=== PATIENT | male | born 1995 | race American Indian/Alaskan Native ===

== ENCOUNTER 2019-08-01 11:08 | Emergency (ER) | payer MEDICAID ==
[2019-08-01 11:35] VITALS: BP 104/73
--- NOTE | 2019-08-01 11:36 | Emergency Department Report ---
ED Psych HPI - General Chief Complaint: Psych Stated Complaint: SUICIDAL IDEATIONS Time Seen by Provider: 08/01/19 11:32 Source: patient, EMS Mode of arrival: Ambulatory - History of Present Illness Initial Comments: Patient is 23 years old male with history of schizophrenia. Patient presented to the ER stating that his very depressed and he is suicidal. Patient stated that he tried to run into traffic yesterday and the day before. Patient stated that he got scared. Patient also stated that he feels like people are trying to get him. Patient denied any auditory or visual hallucination. No homicidal ideation. MD Complaint: suicidal ideation, feels depressed -: days(s) (5) Associated Psychiatric Symptoms: depression, suicidal ideation, delusions History of same: Yes Quality: constant Associated Symptoms: denies other symptoms Treatments Prior to Arrival: none If Self Harm: admits thoughts of, has plan, self-inflicted trauma - Related Data Home Medications Medication Instructions Recorded Confirmed Last Taken ARIPiprazole [Abilify] 30 mg PO BID 08/01/19 08/01/19 08/01/19 Allergies Allergy/AdvReac Type Severity Reaction Status Date / Time No Known Allergies Allergy Unverified 08/01/19 11:33 ED Review of Systems ROS: Stated complaint: SUICIDAL IDEATIONS Other details as noted in HPI Comment: All other systems reviewed and negative Constitutional: denies: chills, fever Respiratory: denies: cough, shortness of breath, SOB with exertion, wheezing Cardiovascular: denies: chest pain, palpitations Gastrointestinal: denies: abdominal pain, nausea, vomiting Musculoskeletal: denies: back pain ED Past Medical Hx - Past Medical History Previous Medical History?: Yes Hx Psychiatric Treatment: Yes (Schizophrenia) - Surgical History Past Surgical History?: No - Social History Smoking Status: Current Every Day Smoker - Medications Home Medications: Home Medications Medication Instructions Recorded Confirmed Last Taken Type ARIPiprazole [Abilify] 30 mg PO BID 08/01/19 08/01/19 08/01/19 History ED Physical Exam - General Limitations: No Limitations General appearance: alert, in no apparent distress - Head Head exam: Present: atraumatic, normocephalic, normal inspection - Eye Eye exam: Present: normal appearance - ENT ENT exam: Present: normal exam, normal orophraynx, mucous membranes moist - Neck Neck exam: Present: normal inspection, full ROM. Absent: tenderness, meningismus, lymphadenopathy, thyromegaly - Respiratory Respiratory exam: Present: normal lung sounds bilaterally - Cardiovascular Cardiovascular Exam: Present: regular rate, normal rhythm, normal heart sounds - GI/Abdominal GI/Abdominal exam: Present: soft, normal bowel sounds. Absent: distended, tenderness, guarding, rebound, rigid, organomegaly, mass, bruit, pulsatile mass, hernia - Extremities Exam Extremities exam: Present: normal inspection, full ROM, normal capillary refill. Absent: tenderness, pedal edema, calf tenderness - Back Exam Back exam: Present: normal inspection, full ROM. Absent: CVA tenderness (R), CVA tenderness (L), muscle spasm, paraspinal tenderness, vertebral tenderness - Neurological Exam Neurological exam: Present: alert, oriented X3, CN II-XII intact, normal gait, reflexes normal - Psychiatric Psychiatric exam: Present: depressed, suicidal ideation. Absent: agitated, anxious, flat affect, manic, homicidal ideation - Skin Skin exam: Present: warm, intact, normal color ED Course Vital Signs 08/01/19 11:34 Temperature 98.2 F Pulse Rate 66 Respiratory 16 Rate Blood Pressure 104/73 [Right] O2 Sat by Pulse 97 Oximetry ED Medical Decision Making - Lab Data Result diagrams: 08/01/19 11:38 08/01/19 11:38 Critical care attestation.: If time is entered above; I have spent that time in minutes in the direct care of this critically ill patient, excluding procedure time. ED Disposition Clinical Impression: Suicidal behavior Disposition: DC/TX-65 PSY HOSP/PSY UNIT Is pt being admited?: No Condition: Stable Referrals: PRIMARY CARE [Primary Care Provider] - 3-5 Days
[2019-08-01 12:05] LABS: Basophils % (Auto) 0.6 % (0.0-1.8); Eosinophils # (Auto) 0.1 K/mm3 (0.0-0.4); Eosinophils % (Auto) 2.2 % (0.0-4.3); Hematocrit 43.3 % (35.5-45.6); Hemoglobin 14.5 gm/dl (11.8-15.2); Lymphocytes % (Auto) 32.5 % (13.4-35.0); Mean Corpuscular HGB Conc 33 % (32-34); Mean Corpuscular Volume 88 fl (84-94); Monocytes # (Auto) 0.4 K/mm3 (0.0-0.8); Monocytes % (Auto) 7.2 % (0.0-7.3); Red Blood Count 4.92 M/mm3 (3.65-5.03); Red Cell Distribution Width 13.5 % (13.2-15.2)
[2019-08-01 12:07] LABS: Platelet Count 148 K/mm3 (140-440)
[2019-08-01 12:09] LABS: BUN/Creatinine Ratio 10; Blood Urea Nitrogen 8 mg/dL (9-20); Calcium 9.2 mg/dL (8.4-10.2); Hemolysis Index 3
[2019-08-01 12:27] LABS: Bilirubin,Urine NEG (Negative); Blood,Urine SM (Negative); Color,Urine Yellow (Yellow); Mucus,Urine FEW /HPF; Protein,Urine <15 mg/dL mg/dL (Negative); Urobilinogen,Urine < 2.0 mg/dL (<2.0); WBC,Urine < 1.0 /HPF (0.0-6.0)
[2019-08-01 12:33] LABS: Amphetamine Screen,Urine PRESUMPTIVE NEGATIVE; Benzodiazepines Screen,Urine PRESUMPTIVE NEGATIVE; Cannabinoid Screen,Urine PRESUMPTIVE NEGATIVE; Cocaine Screen,Urine PRESUMPTIVE NEGATIVE; Methadone Screen,Urine PRESUMPTIVE NEGATIVE; Opiate Screen,Urine PRESUMPTIVE NEGATIVE
== END 2019-08-01 17:00 ==
LOC: ED 11:08
DX: F32.9 Major depressive disorder, single episode, unspecified (principal); R45.851 Suicidal ideations; F17.200 Nicotine dependence, unspecified, uncomplicated; F20.9 Schizophrenia, unspecified
CPT/HCPCS: 36415; 80048; 80307; 80320; 81001; 85025; G0480

== ENCOUNTER 2021-01-08 19:37 | Emergency (ER) | payer MEDICARE ==
--- NOTE | 2021-01-08 20:54 | Emergency Department Report ---
ED Psych HPI - General Chief Complaint: Psych Stated Complaint: SUICIDAL THOUGHTS/MH EVAL Time Seen by Provider: 01/08/21 20:25 Source: patient Mode of arrival: Ambulatory - History of Present Illness Initial Comments: Patient is a 25-year-old F Bur[place]ian male who has a past medical history of schizophrenia is noncompliant with his medications who is presenting with several weeks for suicidal ideations. Patient also states he is depressed and is hearing voices as well. Denies drug or alcohol abuse. Patient denies cough cold congestion fevers or chills. - Related Data Home Medications Medication Instructions Recorded Confirmed Last Taken ARIPiprazole [Abilify] 30 mg PO BID 08/01/19 12/13/19 1 Day Ago ~12/12/19 30 Previous Rx's Medication Instructions Recorded Last Taken Type ARIPiprazole [Abilify] 10 mg PO DAILY #30 tab 07/08/19 2 Days Ago Rx ~12/11/19 10 Citalopram [celeXA] 10 mg PO QDAY #30 tablet 07/08/19 Unknown Rx ARIPiprazole [Abilify] 10 mg PO DAILY 30 Days #30 tab 01/11/21 Unknown Rx Ciprofloxacin HCl 500 mg PO BID 10 Days #20 tablet 01/11/21 Unknown Rx Citalopram [celeXA] 20 mg PO QDAY 30 Days #30 tablet 01/11/21 Unknown Rx Allergies Allergy/AdvReac Type Severity Reaction Status Date / Time No Known Allergies Allergy Unverified 11/04/19 11:24 ED Review of Systems ROS: Stated complaint: SUICIDAL THOUGHTS/MH EVAL Other details as noted in HPI Comment: All other systems reviewed and negative ED Past Medical Hx - Past Medical History Previous Medical History?: Yes Hx Psychiatric Treatment: Yes (schizophrenia) Hx Asthma: Yes - Surgical History Past Surgical History?: Yes Additional Surgical History: Hernia repair. ingrown toes - Social History Smoking Status: Current Every Day Smoker Substance Use Type: None - Medications Home Medications: Home Medications Medication Instructions Recorded Confirmed Last Taken Type ARIPiprazole [Abilify] 10 mg PO DAILY #30 tab 07/08/19 12/13/19 2 Days Ago Rx ~12/11/19 10 Citalopram [celeXA] 10 mg PO QDAY #30 tablet 07/08/19 12/13/19 Unknown Rx ARIPiprazole [Abilify] 30 mg PO BID 08/01/19 12/13/19 1 Day Ago History ~12/12/19 30 ARIPiprazole [Abilify] 10 mg PO DAILY 30 Days #30 tab 01/11/21 Unknown Rx Ciprofloxacin HCl 500 mg PO BID 10 Days #20 tablet 01/11/21 Unknown Rx Citalopram [celeXA] 20 mg PO QDAY 30 Days #30 tablet 01/11/21 Unknown Rx ED Physical Exam - General Limitations: No Limitations General appearance: alert, in no apparent distress - Head Head exam: Present: atraumatic, normocephalic - Eye Eye exam: Present: normal appearance - ENT ENT exam: Present: mucous membranes moist - Neck Neck exam: Present: normal inspection - Respiratory Respiratory exam: Present: normal lung sounds bilaterally. Absent: respiratory distress, wheezes, rales, rhonchi - Cardiovascular Cardiovascular Exam: Present: regular rate, normal rhythm. Absent: systolic murmur, diastolic murmur, rubs, gallop - GI/Abdominal GI/Abdominal exam: Present: soft, normal bowel sounds. Absent: distended, tenderness, guarding - Rectal Rectal exam: Present: deferred - Extremities Exam Extremities exam: Present: normal inspection - Back Exam Back exam: Present: normal inspection - Neurological Exam Neurological exam: Present: alert, oriented X3 - Psychiatric Psychiatric exam: Present: normal affect, normal mood - Skin Skin exam: Present: warm, dry, intact, normal color. Absent: rash ED Course Vital Signs 01/08/21 01/09/21 01/09/21 20:12 08:30 10:19 Temperature 98.7 F 97.9 F Pulse Rate 98 H 76 Respiratory 18 18 Rate Blood Pressure 106/72 154/70 [Right] O2 Sat by Pulse 96 97 97 Oximetry 01/09/21 01/10/21 01/10/21 20:04 09:27 10:03 Temperature 97.8 F 98 F Pulse Rate 79 74 Respiratory 18 18 Rate Blood Pressure 115/79 119/85 [Right] O2 Sat by Pulse 97 99 99 Oximetry 01/10/21 10:44 Temperature Pulse Rate Respiratory Rate Blood Pressure [Right] O2 Sat by Pulse 99 Oximetry - Reevaluation(s) Reevaluation #1: 01/08/21 22:59 EMANUELSCOTT Male : 1995 MedRec# [id number] 01/08/21 22:24 - MH Chuck Tender's Note by CAITLYN BALLESTEROS Acct Num: [id number] : 1995 Patient Age: 25 MENTAL HEALTH ASSESSMENT COMPLETED: Pt is a 25 year old AA male; Per triage note, "SI, no plan; "off and on for 2 wks" Pt receives disability as primary income. Pt carries a diagnosis of Sc hizophrenia. Pt has hx of inpatient admissions at [facility] and [place]; pt has not been compliant with [facility] meds. Pt has no outpatient mental health providers; "I just get my medicines from the [facility] because they give me prescriptions." Pt reported to ED provider that he has been off his meds for a couple of weeks; however, Pt reports to this fish protector that he was discharged from [facility] yesterday where he was given his medication while under their care; "I was there about 3 or 4 days." Pt was prescribed Risperdal per pt. I was living at [facility], "but they aren't taking me because I can't pay the rent." Pt reports he was evicted this morning; therefore, pt is currently homeless. "The rent is $800 now; it was more this time." Pt reports that he would like a new place to stay; previously was living in [facility] and [place]. Pt's mother is ; some of the pt's family is in [place], "but they don't want me staying with them." Pt denies any suicidal thoughts or plans to this fish protector. however, according to triage pt came in for SI; pt denies SI to this fish protector and reports he needs help from "director social". Pt reports, "I need help to find somewhere to go because ya'll helped me at [facility] find somewhere before." Pt reports that he needs assistance with housing; pt reports that he prefers, "gr oup homes in a different city besides [place] and [place]." "And [facility] sent me [place] [facility] [place], but they kicked me out when I didn't pay." Pt stated, "will ya'll keep me here for a couple of days and then find me somewhere to go?" Pt reports no thoughts or plans to harm others. Pt is oriented x 4. Pt is able to advocate for himself (pt requests housing as he was evicted this morning due to being unable to pay the rent.). Pt denied any AH or VH to this fish protector; pt is focused on wanting assistance with finding housing/a new [place]. Pt has good eye contact. Pt does appear to have slow speech and delayed answers when responding; possible developmental delays as pt reports Schizophrenia and "something else." Pt explained that he has a payee who is responsible for "finding me the housing and who gets my money." Pt has delay in his attention. RECOMMENDATION: Pt does NOT meet criteria for inpatient/1013. Pt needs assistance with housing/director social. Discussed with Dr. Bren Vang who will place case management consult to locate pt's payee/guardian ( Ms. Vela [phone])and assistance with safe discharge/housing. Caitlyn Laird LPC Initialized on 01/08/21 22:24 - END OF NOTE Reevaluation #2: 01/08/21 22:59 Patient given different stories regarding whether he is suicidal. Appears that the patient is here because of some type of [place] issue. Patient appears to possibly have some developmental delay and did not feel it was safe to let the patient leave during the nighttime with limited resources. Will have social work see the patient in the morning. Patient does have a payee she did have his living situation taken care of. Reevaluation #3: 01/22/21 13:03 Patricia Psych Progress Note Patient Name: SCOTT CASTELLANOS Date of : [birth year] Patient Status: Emergency Emergency Provider: ANDRZEJ VANG Date: 01/10/21 10:24 Initialization Date: 01/10/21 10:24 Subjective Date of service: 01/10/21 Subjective Comment: The patient was seen this morning, he reports doing well. The patient denies any current suicidal/homicidal ideation and denies hallucinations. REVIEW OF SYSTEMS Constitutional: Negative for weight loss ENT: Negative for stridor Respiratory: Negative for cough or hemoptysis All other systems reviewed and are negative MENTAL STATUS EXAMINATION General Appearance and Behavior: Age appropriate, good hygiene, wearing appropriate clothes, cooperative, cooperative Cooperation: Participating/engaged Psychomotor Behavior: normal Mood: Ok Affect and affective range: congruent with stated mood Thought Process: Not suicidal Thought Content:Goal directed Speech: Normal volume, Regular rate and rhythm Suicidal Ideation: Denies Homicidal Ideation: Denies Hallucinations: Denies Delusions: None elicited Impulse Control: good Insight and Judgment: Limited insight and judgment, Memory: normal Attention: Normal Orientation: Alert, oriented Assessment and Plan (1) Schizophrenia-F20.9 Current Visit: Yes Status: Acute Treatment Plan Sitter: Per primary Medical: Per primary Disposition:Do not recommend acute psychiatric inpatient treatment. The patient understands that is suicidal/homicidal ideation or any endangering thoughts/ behaviors arise, they should immediately seek for emergent assistance including but not limited to crisis hotline and emergency room. The patient will follow up with psychiatric outpatient referral provided by mental health fish protector. Will sign off. Thanks Case staffed with Dr. Gandhi Reevaluation #4: 01/22/21 13:03 SCOTT CASTELLANOS Male : 1995 MedRec# [id number] 01/10/21 14:31 - Mash Processing Operator Note by PERI SIERRA Acct Num: [id number] : 1995 Patient Age: 25 DIRECTOR CHEMISTRY met with patient in the ED. Psych has signed off. (Pt stable) Patient stated that he was in [place] but was told to leave due to nonpayment, DIRECTOR CHEMISTRY called left voice message. Patient reports to having a Payee, gave number, . Payee Fariba Evaristo returned call stating that pt lives with her at [address] [place] [address], but he tends to wander off to different places in [place]? Payee gave DIRECTOR CHEMISTRY pt sisters number Daya Segura [phone] who has POA. Sister also confirms that pt wanders off saying "Why does he keep doing this"? Pt has Medicaid DIRECTOR CHEMISTRY called [employer] for a ride, but its inactivate. Sister stated that she wanted to speak with her brother, gave her nurse Yazmin's number to call to ED. Sister will speak with pt regarding his discharge plan. Initialized on 01/10/21 14:31 - END OF NOTE ED Medical Decision Making - Lab Data Result diagrams: 01/08/21 21:04 01/08/21 21:04 Critical care attestation.: If time is entered above; I have spent that time in minutes in the direct care of this critically ill patient, excluding procedure time. ED Disposition Clinical Impression: Schizophrenia Disposition: 01 HOME / SELF CARE / HOMELESS Is pt being admited?: No Does the pt Need Aspirin: No Condition: Stable Instructions: Schizophrenia Additional Instructions: OUTPATIENT MENTAL HEALTH RESOURCES [facility], [facility] Aliya Kenny MD: [address] [place] [address] [place] [address] [facility]: [employer] [address] [place] [address] [place] [address] [phone] [facility]: [facility]: [address] [place] [address] [facility] [id number] [facility]: Andrew Onofre MD: [address] [facility] [id number] [facility]: [address] [place], [place] [id number] [phone] CRISIS AND ACCESS LINE: Referrals: PIPPA BARRY MD [Primary Care Provider] - 3-5 Days
[2021-01-08 21:46] LABS: Basophils # (Auto) 0.1 K/mm3 (0.0-0.1); Basophils % (Auto) 0.5 % (0.0-1.8); Eosinophils # (Auto) 0.2 K/mm3 (0.0-0.4); Eosinophils % (Auto) 1.8 % (0.0-4.3); Hematocrit 41.8 % (35.5-45.6); Hemoglobin 14.3 gm/dl (11.8-15.2); Lymphocytes # (Auto) 3.2 K/mm3 (1.2-5.4); Lymphocytes % (Auto) 30.1 % (13.4-35.0); Mean Corpuscular HGB Conc 34 % (32-34); Mean Corpuscular Volume 87 fl (84-94); Monocytes # (Auto) 0.9 K/mm3 (0.0-0.8); Monocytes % (Auto) 8.9 % (0.0-7.3); Platelet Count 193 K/mm3 (140-440); Red Blood Count 4.81 M/mm3 (3.65-5.03); Red Cell Distribution Width 13.5 % (13.2-15.2)
[2021-01-08 21:57] LABS: BUN/Creatinine Ratio 14; Blood Urea Nitrogen 14 mg/dL (9-20); Calcium 9.4 mg/dL (8.4-10.2); Hemolysis Index 27
[2021-01-08 22:57] LABS: Amphetamine Screen,Urine PRESUMPTIVE NEGATIVE; Benzodiazepines Screen,Urine PRESUMPTIVE NEGATIVE; Cannabinoid Screen,Urine PRESUMPTIVE NEGATIVE; Cocaine Screen,Urine PRESUMPTIVE NEGATIVE; Methadone Screen,Urine PRESUMPTIVE NEGATIVE; Opiate Screen,Urine PRESUMPTIVE NEGATIVE
[2021-01-08 22:59] LABS: Bilirubin,Urine NEG (Negative); Blood,Urine MOD (Negative); Color,Urine Yellow (Yellow); Mucus,Urine FEW /HPF; Protein,Urine <15 mg/dL mg/dL (Negative); Urobilinogen,Urine < 2.0 mg/dL (<2.0)
[2021-01-09] MEDS ORDERED: levoFLOXacin 500 MG TAB PO ONE (10:37)
--- NOTE | 2021-01-09 11:15 | Event Note ---
Date: 01/09/21 S: No events reported overnight O: Vital Signs - 24 hr 01/08/21 01/09/21 01/09/21 20:12 08:30 10:19 Temperature 98.7 F 97.9 F Pulse Rate 98 H 76 Respiratory 18 18 Rate Blood Pressure 106/72 154/70 [Right] O2 Sat by Pulse 96 97 97 Oximetry A: History of suicidal ideation cleared by psych. UTI P: Patient cleared by psych currently awaiting case management consult for locating patient's payee/guardian for safe discharge Continue Levaquin 500 mg daily x7 days for UTI
--- NOTE | 2021-01-09 11:28 | Consultation ---
History of Present Illness - Reason for Consult Consult date: 01/09/21 Reason for consult: mental health evaluation - History of Present Psychiatric Illness Shyam Gonzalez is a 25 year old patient with a history of Schizophrenia and multiple psychiatric admissions. In my interview with the patient,the patient reports that he was recently releases from [facility] for SI. He reports that he was feeling depression with suicidal ideation yesterday but denies diana icidal/homicidal and denies hallucinations today. He reports that he has tried Risperidone, and Abilify however, medication compliance is unknown.The patient states that he lives at "[facility] but I can't afford the rent." Diagnoses: schizophrenia Suicide attempts or Self-harm behavior:Denies Prior psychiatric hospitalizations: Yes Substance Abuse history: Denies Previous psychiatric medications tried: Abilify, Risperidone Outpatient treatment: Denies PAST MEDICAL HISTORY: None reported Family Psychiatric History: None reported or documented SOCIAL HISTORY Marital Status: single Living Arrangements: with room mate Employment Status: unemployed Access to guns/weapons: Denies Education: 11th grade History of Abuse: none reported Legal History: none reported REVIEW OF SYSTEMS Constitutional: Negative for weight loss ENT: Negative for stridor Respiratory: Negative for cough or hemoptysis All other systems reviewed and are negative MENTAL STATUS EXAMINATION General Appearance and Behavior: Age appropriate, good hygiene, wearing appropriate clothes, cooperative, cooperative Cooperation: Participating/engaged Psychomotor Behavior: normal Mood: OK Affect and affective range: congruent with stated mood Thought Process: logical Thought Content: Not SI Speech: Normal volume, Regular rate and rhythm Suicidal Ideation: Denies Homicidal Ideation: Denies Hallucinations: Denies Delusions: None elicited Impulse Control: impaired Insight and Judgment: limited insight and judgment, Memory: normal Attention: Normal Orientation: Alert, oriented Assessment and Plan (1) Schizophrenia Current Visit: Yes Status: Acute Treatment Plan Sitter: Per primary Medical: Per primary Disposition: Do not recommend acute psychiatric inpatient treatment Will follow. Thanks Case staffed with Dr. Gandhi Medications and Allergies Allergies Allergy/AdvReac Type Severity Reaction Status Date / Time No Known Allergies Allergy Unverified 11/04/19 11:24 Home Medications Medication Instructions Recorded Confirmed Last Taken Type ARIPiprazole [Abilify] 10 mg PO DAILY #30 tab 07/08/19 12/13/19 2 Days Ago Rx ~12/11/19 10 Citalopram [celeXA] 10 mg PO QDAY #30 tablet 07/08/19 12/13/19 Unknown Rx ARIPiprazole [Abilify] 30 mg PO BID 08/01/19 12/13/19 1 Day Ago History ~12/12/19 30 Mental Status Exam - Vital signs Last Vital Signs Temp 97.9 F 01/09/21 08:30 Pulse 76 01/09/21 08:30 Resp 18 01/09/21 08:30 BP 154/70 01/09/21 08:30 Pulse Ox 97 01/09/21 10:19 Results Result Diagrams: 01/08/21 21:04 01/08/21 21:04 Abnormal lab results 01/08/21 01/08/21 01/08/21 Range/Units 21:04 21:04 21:04 [place] % (Auto) 8.9 H (0.0-7.3) % [place] # (Auto) 0.9 H (0.0-0.8) K/mm3 Urine WBC (Auto) (0.0-6.0) /HPF Salicylates < 0.3 L (2.8-20.0) mg/dL Acetaminophen 5.0 L (10.0-30.0) ug/mL 01/08/21 Range/Units Unknown [place] % (Auto) (0.0-7.3) % [place] # (Auto) (0.0-0.8) K/mm3 Urine WBC (Auto) 62.0 H (0.0-6.0) /HPF Salicylates (2.8-20.0) mg/dL Acetaminophen (10.0-30.0) ug/mL All other labs normal.
[2021-01-10 10:04] VITALS: BP 119/85
--- NOTE | 2021-01-10 10:24 | Progress Note ---
Subjective Date of service: 01/10/21 Subjective Comment: The patient was seen this morning, he reports doing well. The patient denies any current suicidal/homicidal ideation and denies hallucinations. REVIEW OF SYSTEMS Constitutional: Negative for weight loss ENT: Negative for stridor Respiratory: Negative for cough or hemoptysis All other systems reviewed and are negative MENTAL STATUS EXAMINATION General Appearance and Behavior: Age appropriate, good hygiene, wearing appropriate clothes, cooperative, cooperative Cooperation: Participating/engaged Psychomotor Behavior: normal Mood: Ok Affect and affective range: congruent with stated mood Thought Process: Not suicidal Thought Content:Goal directed Speech: Normal volume, Regular rate and rhythm Suicidal Ideation: Denies Homicidal Ideation: Denies Hallucinations: Denies Delusions: None elicited Impulse Control: good Insight and Judgment: Limited insight and judgment, Memory: normal Attention: Normal Orientation: Alert, oriented Assessment and Plan (1) Schizophrenia-F20.9 Current Visit: Yes Status: Acute Treatment Plan Sitter: Per primary Medical: Per primary Disposition:Do not recommend acute psychiatric inpatient treatment. The patient understands that is suicidal/homicidal ideation or any endangering thoughts/ behaviors arise, they should immediately seek for emergent assistance including but not limited to crisis hotline and emergency room. The patient will follow up with psychiatric outpatient referral provided by mental health dubbing machine operator. Will sign off. Thanks Case staffed with Dr. Gandhi Medications and Allergies Allergies Allergy/AdvReac Type Severity Reaction Status Date / Time No Known Allergies Allergy Unverified 11/04/19 11:24 Home Medications Medication Instructions Recorded Confirmed Last Taken Type ARIPiprazole [Abilify] 10 mg PO DAILY #30 tab 07/08/19 12/13/19 2 Days Ago Rx ~12/11/19 10 Citalopram [celeXA] 10 mg PO QDAY #30 tablet 07/08/19 12/13/19 Unknown Rx ARIPiprazole [Abilify] 30 mg PO BID 08/01/19 12/13/19 1 Day Ago History ~12/12/19 30 Results - Results Labs/Vitals: Laboratory Last Values WBC 10.6 K/mm3 (4.5-11.0) 01/08/21 21:04 RBC 4.81 M/mm3 (3.65-5.03) 01/08/21 21:04 Hgb 14.3 gm/dl (11.8-15.2) 08/06/21 21:04 Hct 41.8 % (35.5-45.6) 01/08/21 21:04 MCV 87 fl (84-94) 01/08/21 21:04 MCH 30 pg (28-32) 01/08/21 21:04 MCHC 34 % (32-34) 01/08/21 21:04 RDW 13.5 % (13.2-15.2) 01/08/21 21:04 Plt Count 193 K/mm3 (140-440) 01/08/21 21:04 Lymph % (Auto) 30.1 % (13.4-35.0) 01/08/21 21:04 Rush % (Auto) 8.9 % (0.0-7.3) H 01/08/21 21:04 Eos % (Auto) 1.8 % (0.0-4.3) 01/08/21 21:04 Baso % (Auto) 0.5 % (0.0-1.8) 01/08/21 21:04 Lymph # (Auto) 3.2 K/mm3 (1.2-5.4) 01/08/21 21:04 Rush # (Auto) 0.9 K/mm3 (0.0-0.8) H 01/08/21 21:04 Eos # (Auto) 0.2 K/mm3 (0.0-0.4) 01/08/21 21:04 Baso # (Auto) 0.1 K/mm3 (0.0-0.1) 01/08/21 21:04 Seg Neutrophils % 58.7 % (40.0-70.0) 01/08/21 21:04 Seg Neutrophils # 6.2 K/mm3 (1.8-7.7) 01/08/21 21:04 Sodium 141 mmol/L (137-145) 01/08/21 21:04 Potassium 3.9 mmol/L (3.6-5.0) 01/08/21 21:04 Chloride 104.8 mmol/L (98-107) 01/08/21 21:04 Carbon Dioxide 22 mmol/L (22-30) 01/08/21 21:04 Anion Gap 18 mmol/L 01/08/21 21:04 BUN 14 mg/dL (9-20) 01/08/21 21:04 Creatinine 1.0 mg/dL (0.8-1.3) 01/08/21 21:04 Estimated GFR > 60 ml/min 01/08/21 21:04 BUN/Creatinine Ratio 14 % 01/08/21 21:04 Glucose 94 mg/dL (75-100) 01/08/21 21:04 Calcium 9.4 mg/dL (8.4-10.2) 01/08/21 21:04 Urine Color Yellow (Yellow) 01/08/21 Unknown Urine Turbidity Slightly-cloudy (Clear) 01/08/21 Unknown Urine pH 5.0 (5.0-7.0) 01/08/21 Unknown Ur Specific [place] 1.015 (1.003-1.030) 01/08/21 Unknown Urine Protein <15 mg/dl mg/dL (Negative) 01/08/21 Unknown Urine Glucose (UA) Neg mg/dL (Negative) 01/08/21 Unknown Urine Ketones Neg mg/dL (Negative) 01/08/21 Unknown Urine Blood Mod (Negative) 01/08/21 Unknown Urine Nitrite Neg (Negative) 01/08/21 Unknown Urine Bilirubin Neg (Negative) 01/08/21 Unknown Urine Urobilinogen < 2.0 mg/dL (<2.0) 01/08/21 Unknown Ur Leukocyte Esterase Lg (Negative) 01/08/21 Unknown Urine WBC (Auto) 62.0 /HPF (0.0-6.0) H 01/08/21 Unknown Urine RBC (Auto) 5.0 /HPF (0.0-6.0) 01/08/21 Unknown U Epithel Cells (Auto) 5.0 /HPF (0-13.0) 01/08/21 Unknown Urine Mucus Few /HPF 01/08/21 Unknown Salicylates < 0.3 mg/dL (2.8-20.0) L 01/08/21 21:04 Urine Opiates Screen Presumptive negative 01/08/21 Unknown Urine Methadone Screen Presumptive negative 01/08/21 Unknown Acetaminophen 5.0 ug/mL (10.0-30.0) L 01/08/21 21:04 Ur Barbiturates Screen Presumptive negative 01/08/21 Unknown Ur Phencyclidine Scrn Presumptive negative 01/08/21 Unknown Ur Amphetamines Screen Presumptive negative 01/08/21 Unknown U Benzodiazepines Scrn Presumptive negative 01/08/21 Unknown Urine Cocaine Screen Presumptive negative 01/08/21 Unknown U Marijuana (THC) Screen Presumptive negative 01/08/21 Unknown Drugs of Abuse Note Disclamer 01/08/21 Unknown Plasma/Serum Alcohol < 0.01 % (0-0.07) 01/08/21 21:04 Last Vital Signs Temp 98 F 01/10/21 10:03 Pulse 74 01/10/21 10:03 Resp 18 01/10/21 10:03 BP 119/85 01/10/21 10:03 Pulse Ox 99 01/10/21 10:03
--- NOTE | 2021-01-10 10:54 | Event Note ---
Date: 01/10/21 S: No events reported overnight O: Vital Signs - 24 hr 01/09/21 01/10/21 01/10/21 20:04 09:27 10:03 Temperature 97.8 F 98 F Pulse Rate 79 74 Respiratory 18 18 Rate Blood Pressure 115/79 119/85 [Right] O2 Sat by Pulse 97 99 99 Oximetry 01/10/21 10:44 Temperature Pulse Rate Respiratory Rate Blood Pressure [Right] O2 Sat by Pulse 99 Oximetry A: Schizophrenia, homelessness P: Psychiatry has signed off. Currently awaiting case management for safe discharge home
== END 2021-01-10 15:10 | disposition home or self-care (01) ==
LOC: EEVIPCON 19:37 → ED 19:37
DX: R45.851 Suicidal ideations (principal); F20.9 Schizophrenia, unspecified; J45.909 Unspecified asthma, uncomplicated; F17.200 Nicotine dependence, unspecified, uncomplicated
CPT/HCPCS: 36415; 80048; 80307; 80320; 81001; 85025; 87086; 99284; G0480

== ENCOUNTER 2021-01-11 02:02 | Emergency (ER) | payer MEDICARE ==
[2021-01-11 03:20] LABS: Basophils % (Auto) 0.4 % (0.0-1.8); Eosinophils # (Auto) 0.2 K/mm3 (0.0-0.4); Hematocrit 40.3 % (35.5-45.6); Hemoglobin 13.7 gm/dl (11.8-15.2); Lymphocytes # (Auto) 2.8 K/mm3 (1.2-5.4); Lymphocytes % (Auto) 26.8 % (13.4-35.0); Mean Corpuscular HGB Conc 34 % (32-34); Mean Corpuscular Volume 87 fl (84-94); Monocytes # (Auto) 0.9 K/mm3 (0.0-0.8); Monocytes % (Auto) 8.5 % (0.0-7.3); Platelet Count 190 K/mm3 (140-440); Red Blood Count 4.62 M/mm3 (3.65-5.03); Red Cell Distribution Width 13.9 % (13.2-15.2)
[2021-01-11 03:38] LABS: BUN/Creatinine Ratio 14; Blood Urea Nitrogen 11 mg/dL (9-20); Calcium 9.9 mg/dL (8.4-10.2); Hemolysis Index 5
--- NOTE | 2021-01-11 06:41 | Emergency Department Report ---
ED Psych HPI - General Chief Complaint: Psych Stated Complaint: DEPRESSED Time Seen by Provider: 01/11/21 06:17 Source: patient Mode of arrival: Ambulatory - History of Present Illness Initial Comments: Patient is 25 years old male with history of depression, schizophrenia and mu ltiple psychiatric admission. Patient presented to the ER stated that he is feeling depressed however patient denied any suicidal homicidal ideation. Patient also denied any auditory or visual hallucination. Patient was seen here 2 days ago and has been evaluated by our psychiatric team and discharged to follow-up as an outpatient. Patient today stated that he just want to see if he can get some medication for depression and then he would leave. Patient denied any other complaint. MD Complaint: feels depressed -: week(s) Associated Psychiatric Symptoms: depression History of same: Yes Quality: intermittent Associated Symptoms: denies other symptoms - Related Data Home Medications Medication Instructions Recorded Confirmed Last Taken ARIPiprazole [Abilify] 30 mg PO BID 08/01/19 12/13/19 1 Day Ago ~12/12/19 30 Previous Rx's Medication Instructions Recorded Last Taken Type ARIPiprazole [Abilify] 10 mg PO DAILY #30 tab 07/08/19 2 Days Ago Rx ~12/11/19 10 Citalopram [celeXA] 10 mg PO QDAY #30 tablet 07/08/19 Unknown Rx ARIPiprazole [Abilify] 10 mg PO DAILY 30 Days #30 tab 01/11/21 Unknown Rx Citalopram [celeXA] 20 mg PO QDAY 30 Days #30 tablet 01/11/21 Unknown Rx Allergies Allergy/AdvReac Type Severity Reaction Status Date / Time No Known Allergies Allergy Unverified 11/04/19 11:24 ED Review of Systems ROS: Stated complaint: DEPRESSED Other details as noted in HPI Comment: All other systems reviewed and negative Constitutional: denies: chills, fever Respiratory: denies: cough, shortness of breath, SOB with exertion, SOB at rest Cardiovascular: denies: chest pain, palpitations Gastrointestinal: denies: abdominal pain, nausea, vomiting Musculoskeletal: denies: back pain Neurological: denies: headache, weakness, numbness, paresthesias, confusion Psychiatric: depression. denies: auditory hallucinations, visual hallucinations, homicidal thoughts, suicidal thoughts ED Past Medical Hx - Past Medical History Previous Medical History?: Yes Hx Psychiatric Treatment: Yes (schizophrenia) Hx Asthma: Yes - Surgical History Past Surgical History?: Yes Additional Surgical History: Hernia repair. ingrown toes - Social History Smoking Status: Never Smoker Substance Use Type: None - Medications Home Medications: Home Medications Medication Instructions Recorded Confirmed Last Taken Type ARIPiprazole [Abilify] 10 mg PO DAILY #30 tab 07/08/19 12/13/19 2 Days Ago Rx ~12/11/19 10 Citalopram [celeXA] 10 mg PO QDAY #30 tablet 07/08/19 12/13/19 Unknown Rx ARIPiprazole [Abilify] 30 mg PO BID 08/01/19 12/13/19 1 Day Ago History ~12/12/19 30 ARIPiprazole [Abilify] 10 mg PO DAILY 30 Days #30 tab 01/11/21 Unknown Rx Citalopram [celeXA] 20 mg PO QDAY 30 Days #30 tablet 01/11/21 Unknown Rx ED Physical Exam - General Limitations: No Limitations General appearance: alert, in no apparent distress - Head Head exam: Present: atraumatic, normocephalic, normal inspection - Eye Eye exam: Present: normal appearance, PERRL - ENT ENT exam: Present: normal exam, normal orophraynx, mucous membranes moist - Neck Neck exam: Present: normal inspection, full ROM. Absent: tenderness, meningismus - Respiratory Respiratory exam: Present: normal lung sounds bilaterally - Cardiovascular Cardiovascular Exam: Present: regular rate, normal rhythm, normal heart sounds - GI/Abdominal GI/Abdominal exam: Present: soft, normal bowel sounds. Absent: distended, tenderness, guarding, rebound, organomegaly, mass, bruit, pulsatile mass - Extremities Exam Extremities exam: Present: normal inspection, full ROM, normal capillary refill. Absent: tenderness - Back Exam Back exam: Present: normal inspection, full ROM. Absent: CVA tenderness (R), CVA tenderness (L) - Neurological Exam Neurological exam: Present: alert, oriented X3, CN II-XII intact, normal gait, reflexes normal. Absent: motor sensory deficit - Psychiatric Psychiatric exam: Present: flat affect. Absent: agitated, manic, homicidal ideation, suicidal ideation - Skin Skin exam: Present: warm, dry, intact, normal color ED Course Vital Signs 01/11/21 01/11/21 01/11/21 02:30 06:11 08:34 Temperature 97.9 F 98.3 F Pulse Rate 88 89 Respiratory 20 20 17 Rate Blood Pressure 140/80 Blood Pressure 140/87 [Left] O2 Sat by Pulse 97 97 96 Oximetry 01/11/21 08:54 Temperature Pulse Rate Respiratory Rate Blood Pressure Blood Pressure [Left] O2 Sat by Pulse 96 Oximetry ED Medical Decision Making - Lab Data Result diagrams: 01/11/21 02:37 01/11/21 02:37 - Medical Decision Making Patient is 25 years old male with history of depression, schizophrenia and multiple psychiatric admission. Patient presented to the ER stated that he is feeling depressed however patient denied any suicidal homicidal ideation. Patient also denied any auditory or visual hallucination. Patient was seen here 2 days ago and has been evaluated by our psychiatric team and discharged to follow-up as an outpatient. Patient today stated that he just want to see if he can get some medication for depression and then he would leave. Patient denied any other complaint. Labs reviewed and showed UTI. I started patient on ciprofloxacin. Patient has been evaluated by our psychiatric team and advised for discharge. Patient given Celexa and Abilify. Patient advised to return to the ER if he develop any symptoms. Critical care attestation.: If time is entered above; I have spent that time in minutes in the direct care of this critically ill patient, excluding procedure time. ED Disposition Clinical Impression: Depression, UTI (urinary tract infection) Disposition: DC-01 TO HOME OR SELFCARE Is pt being admited?: No Condition: Stable Instructions: Major Depressive Disorder, Adult, Urinary Tract Infection, Adult Prescriptions: ARIPiprazole [Abilify] 10 mg PO DAILY 30 Days #30 tab Citalopram [celeXA] 20 mg PO QDAY 30 Days #30 tablet Referrals: PRIMARY CARE, [Primary Care Provider] - 3-5 Days
[2021-01-11 07:59] LABS: Bacteria,Urine 1+ /HPF (Negative); Bilirubin,Urine NEG (Negative); Blood,Urine MOD (Negative); Color,Urine Yellow (Yellow); Mucus,Urine FEW /HPF; Protein,Urine <15 mg/dL mg/dL (Negative); Urobilinogen,Urine < 2.0 mg/dL (<2.0)
[2021-01-11 08:04] LABS: Amphetamine Screen,Urine Negative; Benzodiazepines Screen,Urine Negative; Cannabinoid Screen,Urine Negative; Cocaine Screen,Urine Negative; Methadone Screen,Urine Negative; Opiate Screen,Urine Negative
--- NOTE | 2021-01-11 12:00 | Consultation ---
History of Present Illness - Reason for Consult Consult date: 01/11/21 Reason for consult: Depression - History of Present Psychiatric Illness ED Note: Patient is 25 years old male with history of depression, schizophrenia and multiple psychiatric admission. Patient presented to the ER stated that he is feeling depressed however patient denied any suicidal homicidal ideation. Patient also denied any auditory or visual hallucination. Patient was seen here 2 days ago and has been evaluated by our psychiatric team and discharged to follow-up as an outpatient. Patient today stated that he just want to see if he can get some medication for depression and then he would leave. Patient denied any other complaint. Shyam Gonzalez is a 25 year old patient with a history of Schizophrenia, Depression and multiple psychiatric admissions. This patient was discharged yesterday. In my interview with the patient,the patient reports that he did not have a place to go. He reports that he was feeling depressed and decided to come back to the ED. He reports that he has tried Risperidone, and Abilify however, medication compliance is unknown.The patient denies any current suicidal/homicidal ideation and denies hallucinations. Diagnoses: Depression, Schizophrenia Suicide attempts or Self-harm behavior:Denies Prior psychiatric hospitalizations: Yes Substance Abuse history: Denies Previous psychiatric medications tried: Abilify, Risperidone Outpatient treatment: Denies PAST MEDICAL HISTORY: None reported Family Psychiatric History: None reported or documented SOCIAL HISTORY Marital Status: single Living Arrangements: with room mate Employment Status: unemployed Access to guns/weapons: Denies Education: 11th grade History of Abuse: none reported Legal History: none reported REVIEW OF SYSTEMS Constitutional: Negative for weight loss ENT: Negative for stridor Respiratory: Negative for cough or hemoptysis All other systems reviewed and are negative MENTAL STATUS EXAMINATION General Appearance and Behavior: Age appropriate, good hygiene, wearing appropriate clothes, cooperative, cooperative Cooperation: Participating/engaged Psychomotor Behavior: normal Mood: OK Affect and affective range: congruent with stated mood Thought Process: logical Thought Content: Not SI Speech: Normal volume, Regular rate and rhythm Suicidal Ideation: Denies Homicidal Ideation: Denies Hallucinations: Denies Delusions: None elicited Impulse Control: impaired Insight and Judgment: limited insight and judgment, Memory: normal Attention: Normal Orientation: Alert, oriented Assessment and Plan (1) Schizophrenia Current Visit: Yes Status: Acute Treatment Plan Start Abilify 10mg po daily Start Celexa 20mg po daily Sitter: Per primary Medical: Per primary Disposition: Do not recommend acute psychiatric inpatient treatment. The patient understands that if suicidal/homicidal ideas or any endangering thoughts/ behaviors arise, they should seek immediate assistance including but not limited to crisis hotline and emergency room. The patient will follow up with outpatient referrals and a safety plan provided by the mental health finance accounting internship. Will sign off. Thanks Case staffed with Dr. Gandhi Medications and Allergies Allergies Allergy/AdvReac Type Severity Reaction Status Date / Time No Known Allergies Allergy Unverified 11/04/19 11:24 Home Medications Medication Instructions Recorded Confirmed Last Taken Type ARIPiprazole [Abilify] 10 mg PO DAILY #30 tab 07/08/19 12/13/19 2 Days Ago Rx ~12/11/19 10 Citalopram [celeXA] 10 mg PO QDAY #30 tablet 07/08/19 12/13/19 Unknown Rx ARIPiprazole [Abilify] 30 mg PO BID 08/01/19 12/13/19 1 Day Ago History ~12/12/19 30 ARIPiprazole [Abilify] 10 mg PO DAILY 30 Days #30 tab 01/11/21 Unknown Rx Citalopram [celeXA] 20 mg PO QDAY 30 Days #30 tablet 01/11/21 Unknown Rx Mental Status Exam - Vital signs Last Vital Signs Temp 98.3 F 01/11/21 08:34 Pulse 89 01/11/21 08:34 Resp 17 01/11/21 08:34 BP 140/87 01/11/21 08:34 Pulse Ox 96 01/11/21 08:54 Results Result Diagrams: 01/11/21 02:37 01/11/21 02:37 Abnormal lab results 01/11/21 01/11/21 01/11/21 Range/Units 02:37 02:37 02:37 [place] % (Auto) 8.5 H (0.0-7.3) % [place] # (Auto) 0.9 H (0.0-0.8) K/mm3 Glucose 111 H (75-100) mg/dL Urine WBC (Auto) (0.0-6.0) /HPF Salicylates < 0.3 L (2.8-20.0) mg/dL Acetaminophen (10.0-30.0) ug/mL 01/11/21 01/11/21 Range/Units 02:37 Unknown [place] % (Auto) (0.0-7.3) % [place] # (Auto) (0.0-0.8) K/mm3 Glucose (75-100) mg/dL Urine WBC (Auto) 50.0 H (0.0-6.0) /HPF Salicylates (2.8-20.0) mg/dL Acetaminophen 5.0 L (10.0-30.0) ug/mL All other labs normal.
[2021-01-11] MEDS ORDERED: ZIPRASIDONE MESYLATE 20 MG VIAL IM ONE (14:33)
[2021-01-13 02:37] VITALS: BP 121/78
== END 2021-01-13 05:14 | disposition home or self-care (01) ==
LOC: EEVIPCON 02:02 → ED 02:02
DX: F32.9 Major depressive disorder, single episode, unspecified (principal); N39.0 Urinary tract infection, site not specified; F20.9 Schizophrenia, unspecified; J45.909 Unspecified asthma, uncomplicated; Z98.890 Other specified postprocedural states
CPT/HCPCS: 36415; 80048; 80307; 81001; 85025; 87086; 96372; 99284; J3486; 80320; G0480